=== PATIENT | male | born 1985 | race African-American/Black ===

== ENCOUNTER 2019-05-05 10:00 | Emergency (ER) | payer SELFPAY ==
--- NOTE | 2019-05-05 11:03 | ED ---
Lower Extremity - HPI Summary HPI Summary: This patient is a 34 year old M presenting to [facility] with a chief complaint of constant R knee pain since 05/03/19. Pt reports he twisted his knee stepping out of his car. 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 Per triage, the patient rates the pain 7/10 in severity. Pt is able to ambulate. - History of Current Complaint Chief Complaint: EDExtremityLower Stated Complaint: RT KNEE TWISTED PER PT Time Seen by Provider: 05/05/19 10:35 Hx Obtained From: Patient Mechanism Of Injury: Twisted Onset of Pain: Post Accident Onset/Duration: Days Severity Initially: Severe Severity Currently: Severe Pain Intensity: 7 Pain Scale Used: 0-10 Numeric Timing: Constant Location: Is Discrete @ - R knee Associated Signs And Symptoms: Positive: Knee Pain Aggravating Factor(s): Other - driving - Allergies/Home Medications Allergies/Adverse Reactions: Allergies Allergy/AdvReac Type Severity Reaction Status Date / Time No Known Allergies Allergy Verified 05/05/19 10:28 Home Medications: Home Medications NK [No Home Medications Reported] 05/05/19 [History Confirmed 05/05/19] PMH/Surg Hx/FS Hx/Imm Hx Sensory History: Denies: Hx Legally Blind, Hx Deafness Opthamlomology History: Denies: Hx Legally Blind EENT History: Denies: Hx Deafness - Surgical History Surgical History: Yes Surgery Procedure, Year, and Place: Amputated L index finger Infectious Disease History: No Infectious Disease History: Denies: Traveled Outside the [place] in Last 30 Days - Family History Known Family History: Negative: Hypertension, Diabetes - Social History Occupation: Employed Full-time Alcohol Use: None Substance Use Type: Reports: None Hx Tobacco Use: No Smoking Status (MU): Never Smoked Tobacco Review of Systems Negative: Fever Positive: Other - R knee pain All Other Systems Reviewed And Are Negative: Yes Physical Exam - Summary Physical Exam Summary: Appearance: The patient is well-nourished in no acute distress and in no acute pain. Skin: The skin is warm and dry, and skin color reflects adequate perfusion. HEENT: The head is normocephalic and atraumatic. The pupils are equal and reactive. The conjunctivae are clear and without drainage. Nares are patent and without drainage. Mouth reveals moist mucous membranes, and the throat is without erythema and exudate. The external ears are intact. The ear canals are patent and without drainage. The tympanic membranes are intact. Neck: The neck is supple with full range of motion and non-tender. There are no carotid bruits. There is no neck vein distension. Respiratory: Chest is non-tender. Lungs are clear to auscultation and breath sounds are symmetrical and equal. Cardiovascular: Heart is regular rate and rhythm. There is no murmur or rub auscultated. There is no peripheral edema and pulses are symmetrical and equal. Abdomen: The abdomen is soft and non-tender. There are normal bowel sounds heard in all four quadrants and there is no organomegaly palpated. Musculoskeletal: There is no back tenderness noted. There is good capillary refill. There is no peripheral edema or calf tenderness elicited. mild tenderness to stress in his ACL anterior cruciate ligament. Neurological: Patient is alert and oriented to person, place and time. The patient has symmetrical motor strength in all four extremities. Cranial nerves are grossly intact. Deep tendon reflexes are symmetrical and equal in all four extremities. Psychiatric: The patient has an appropriate affect and does not exhibit any anxiety or depression. Triage Information Reviewed: Yes Vital Signs On Initial Exam: Initial Vitals Temp Pulse Resp BP Pulse Ox 99.1 F 74 16 126/71 97 05/05/19 10:24 05/05/19 10:24 05/05/19 10:24 05/05/19 10:24 05/05/19 10:24 Vital Signs Reviewed: Yes Diagnostics - Vital Signs Vital Signs Temp Pulse Resp BP Pulse Ox 05/05/19 10:24 99.1 F 74 16 126/71 97 - Laboratory Lab Statement: Any lab studies that have been ordered have been reviewed, and results considered in the medical decision making process. - Radiology Knee X-Ray Radiology Interpretation Completed By: Radiologist Summary of Radiographic Findings: Knee X-Ray reveals, per radiologist, IMPRESSION: No fracture of the right knee is noted. ED physician has reviewed this radiology report. Re-Evaluation - Re-Evaluation First Eval Comment: Discussed results with pt. Lower Extremity Course/Dx - Course Course Of Treatment: Mr. Bernabe's exam was fairly unremarkable. It's possible that there is some ACL injury. 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 I recommended he have off a couple days and he will follow-up with his PCP. - Diagnoses Provider Diagnoses: Knee injury Discharge ED - Sign-Out/Discharge Documenting (check all that apply): Patient Departure - Discharge Patient Received Moderate/Deep Sedation with Procedure: No - Discharge Plan Condition: Stable Disposition: HOME Patient Education Materials: Knee Pain (ED) Forms: *Work Release Referrals: Care [facility] [Outside] - 3 Days Additional Instructions: Follow up with Primary Care Physician in 2-3 days. RETURN TO THE ED FOR ANY NEW OR WORSENING SYMPTOMS. - Billing Disposition and Condition Condition: STABLE Disposition: Home - Attestation Statements Document Initiated by Scribe: Yes Documenting Scribe: Ashely Powell Provider For Whom Olegario is Documenting (Include Credential): Dr. Bernardino Hubbard MD Scribe Attestation: Ashely Rowe scribed for Dr. Bernardino Hubbard MD on 05/05/19 at 1347. Scribe Documentation Reviewed: Yes Provider Attestation: The documentation as recorded by the Ashely rowan accurately reflects the service I personally performed and the decisions made by me, Dr. Bernardino Hubbard MD Status of Scribe Document: Viewed
[2019-05-05 12:10] VITALS: BP 131/71
== END 2019-05-05 12:00 | disposition home or self-care (01) ==
LOC: ED 10:00
DX: S89.91XA Unspecified injury of right lower leg, initial encounter (principal); X50.1XXA Overexertion from prolonged static or awkward postures, initial encounter; Y92.810 Car as the place of occurrence of the external cause
CPT/HCPCS: 99281